=== PATIENT | female | born 1965 | race Caucasian/White ===

== ENCOUNTER 2018-04-22 22:38 | Observation (INO) | payer SELFPAY ==
[2018-04-22 23:34] LABS: #Eosinphils 0.2 thou/uL (0.0-0.7); #Lymphocytes 2.9 thou/uL (1.20-3.40); #Monocytes 0.5 thou/uL (0.11-0.59); #Neutrophils 5.6 thou/uL (1.40-6.50); %Basophils 0.4 % (0.0-1.0); %Eosinophils 2.2 % (0.0-10.0); %Lymphocytes 31.1 % (21.0-51.0); %Monocytes 5.7 % (0.0-10.0); %Neutrophils 60.7 % (42.0-75.0); Hemoglobin 12.8 g/dL (12.0-16.0); Mean Corpuscular HGB CONC 34.8 g/dL (32.0-36.0); Mean Corpuscular Hemoglobin 28.3 pg (27.0-31.0); Mean Corpuscular Volume 81.3 fl (81.0-99.0); Platelet Count 187 thou/uL (130-400); RBC Distribution Width 13.5 % (11.5-14.5); Red Blood Cell (RBC) Count 4.51 mill/uL (4.20-5.40); White Blood Cell (WBC) Count 9.3 thou/uL (4.8-10.8)
--- NOTE | 2018-04-22 23:39 | CT ---
CT BRAIN WITHOUT CONTRAST: History: Stroke alert. Comparison: None. FINDINGS: No hemorrhage or infarct. No midline shift or mass effect. Ventricular size and extraaxial CSF spaces are normal. Paranasal sinuses and mastoids are clear. IMPRESSION: No acute intracranial abnormality. Code CR. Emergency Department called at 11:33 a.m. POS: ELYSIA
[2018-04-22 23:41] LABS: PTT 27.2 SEC (22.9-36.1); Prothrombin Time 13.6 SEC (12.0-14.7)
[2018-04-22 23:46] LABS: ALT (SGPT) 50 U/L (8-55); AST (SGOT) 50 U/L (5-34); Albumin 4.2 g/dL (3.5-5.0); Alkaline Phosphatase 84 U/L (40-150); Anion Gap 15 mmol/L (10-20); BUN (Urea Nitrogen) 12 mg/dL (9.8-20.1); Bilirubin, Total 0.3 mg/dL (0.2-1.2); Calc. Creatinine Clearance 0 mL/min (70-130); Calcium 9.4 mg/dL (7.8-10.44); Carbon Dioxide 24 mmol/L (22-29); Chloride 100 mmol/L (98-107); Estimated GFR-MDRD 73; Globulin 3.2 g/dL (2.4-3.5); Glucose 163 mg/dL (70-105); Potassium 3.8 mmol/L (3.5-5.1); Protein, Total 7.4 g/dL (6.0-8.3); Sodium 135 mmol/L (136-145)
[2018-04-22 23:51] LABS: CKMB 0.7 ng/mL (0-6.6); Troponin I Less than 0.010 ng/mL (< 0.028)
[2018-04-23 01:27] LABS: Bilirubin Negative (Negative); Blood, Urine Negative (Negative); Clarity CLEAR (Clear); Glucose, Urine (Dipstick) Negative (Negative); Leukocyte Negative (Negative); Nitrite Negative (Negative); Protein, Urine (Dipstick) Negative (Neg-Trace); Specific Gravity, Urine 1.014 (1.002-1.036); Urobilinogen 0.2 mg/dL (0.2-1.0)
[2018-04-23] MEDS ORDERED: Acetaminophen 325 MG TAB PO PRN (02:35)
[2018-04-23] MEDS ORDERED: Ondansetron HCl/PF 4 MG/2 ML Vial IVP PRN (02:35)
[2018-04-23] MEDS ORDERED: Ondansetron ODT 4 MG TAB PO PRN (02:35)
[2018-04-23 02:51] LABS: #Eosinphils 0.2 thou/uL (0.0-0.7); #Lymphocytes 2.5 thou/uL (1.20-3.40); #Monocytes 0.4 thou/uL (0.11-0.59); #Neutrophils 4.8 thou/uL (1.40-6.50); %Basophils 0.6 % (0.0-1.0); %Eosinophils 2.4 % (0.0-10.0); %Lymphocytes 31.2 % (21.0-51.0); %Monocytes 5.1 % (0.0-10.0); %Neutrophils 60.8 % (42.0-75.0); Hemoglobin 11.9 g/dL (12.0-16.0); Mean Corpuscular HGB CONC 35.3 g/dL (32.0-36.0); Mean Corpuscular Hemoglobin 28.8 pg (27.0-31.0); Mean Corpuscular Volume 81.7 fl (81.0-99.0); Platelet Count 163 thou/uL (130-400); RBC Distribution Width 13.5 % (11.5-14.5); Red Blood Cell (RBC) Count 4.12 mill/uL (4.20-5.40); White Blood Cell (WBC) Count 7.9 thou/uL (4.8-10.8)
--- NOTE | 2018-04-23 03:00 | HP ---
DATE OF ADMISSION: 04/23/2018 PRIMARY CARE PHYSICIAN: Obdulia chaney. TIME OF SERVICE: 0150. CHIEF COMPLAINT: Headache and left-sided weakness. HISTORY OF PRESENT ILLNESS: Ms. Munoz is a 52-year-old female with a history of recurrent headaches/ migraines, hypertension, TIAs, she has been told since October, hypothyroidism and diabetes. The patient was with normal state of health, has been complaining of increasing visual changes that s he describes as blurriness in both eyes in all loaiza and feel like she is going blind. She started having this "TIA" about 5 days ago as when her symptoms started with intractable headache that she describes as starting on the left frontoparietal region extending backwards and worsening o f vision. Today around 6:00 a.m., she had acute onset of left-sided weakness giving her some function, but decr eased strength, and subsequently came to the emergency department for evaluation some 12 hours later. She has had some nausea and vomiting, which is a kind of her baseline. She has got decreased stren gth to her left upper and lower extremities. She presented to the emergency department for evaluation. CT scan of the brain was negative. Labs w ere fairly normal. We simply called for admit. PAST MEDICAL HISTORY: 1. Hypertension. 2. TIAs. 3. Migraine headaches. 4. Hypothyroidism. 5. Diabetes mellitus type 2, non-insulin dependent. PAST SURGICAL HISTORY: Includes: 1. Shoulder repair x2. 2. Ankle surgery. 3. Cholecystectomy. 4. Hysterectomy. 5. Bilateral tubal ligation. HOME MEDICATIONS: 1. Metformin 1000 mg p.o. b.i.d. 2. Cyclobenzaprine 10 mg p.o. t.i.d. p.r.n. headaches. 3. Butalbital/acetaminophen/caffeine q.6 hours p.r.n. migraine. 4. Zofran ODT 4 mg q.8 hours. 5. Estradiol 0.5 mg p.o. daily. 6. Trazodone 150 mg p.o. at bedtime. 7. Valsartan 160 mg daily. 8. Levothyroxine 50 mcg daily. 9. Metoprolol tartrate 50 mg p.o. b.i.d. ALLERGIES: 1. HYDROCHLOROTHIAZIDE causes her to "turn pale." 2. PENICILLIN caused her throat to swell up. 3. PERCOCET caused her to be nauseated and goofy. FAMILY HISTORY: Negative for clotting or bleeding disorder. No immune dysfunction. SOCIAL HISTORY: Negative for habits x3. She is , recently moved down here from [place] some time in February. REVIEW OF SYSTEMS: All systems reviewed and negative except as stated as per HPI. PHYSICAL EXAMINATION: VITAL SIGNS: Temperature on arrival 98.8, pulse 79, blood pressure 172/99, respiratory rate 20, satt ing 95% on room air. GENERAL: She is awake. She is alert. She is oriented x3. She is an obese, white female, appears t o be in no acute distress. She was kind of aloof. HEENT: Normocephalic, atraumatic. Pupils are equal, round, and reactive bilaterally. Mucous membra juan moist. No visible lesions. No thrush. Teeth are in very bad repair. She has got multiple dent al caries down to the gumline. The only 2 teeth on her lower jaw are anteriorly and they move while she talks due to caries. NECK: Supple. There is no lymphadenopathy, no JVD, no thyromegaly. I do not hear any bruits. LUNGS: Clear to auscultation bilaterally without wheezes, rales or rhonchi. CARDIOVASCULAR: Normal S1, S2. No S3 or S4. She has normal rate and regular rhythm. ABDOMEN: Obese. It is nontender, nondistended. She has good bowel sounds in all 4 quadrants. EXTREMITIES: No cyanosis or clubbing. Trace pedal edema. SKIN: Warm, moist and well perfused. She has no rashes or lesions. MUSCULOSKELETAL: Normal to inspection. All of the large joints appeared normal. There is no eviden ce of inflammation or palpable joint effusions. NEUROLOGIC: Cranial nerves II-XII are grossly intact without any focal neurologic deficits. She lozada s think feign blurry vision. She had no nystagmus. Pupils equal, round, and reactive to light. She has 5/5 strength in her right upper and lower extremity. She has 4/5 strength in the left upper ext remity and 4/5 strength in the lower extremity, though the lower extremity seems more breakthrough. Her left foot is not ticklish and her right is extremely ticklish. Otherwise, she said the sensation seems pretty normal. LABORATORY DATA: Sodium 135, potassium 3.8, chloride 102, bicarb 24, BUN 12, creatinine is 0.82, glu cose 116, and calcium was 7.4. Liver function completely within normal limits. CBC showed a white count of 9.3, hemoglobin of 12.8, hematocrit of 36.6, platelet count is 187,000. INR is 1.0. CK-MB normal at 0.7. Troponin I undetectable, 0.010. RADIOGRAPHIC STUDIES: She had a noncontrast CT scan of the brain was unremarkable. ASSESSMENT AND PLAN: 1. Left-sided headache, left-sided upper and lower extremity weakness, increasing episodes of blurry vision. Certainly, it could be a transient ischemic attack, though I was unimpressed by the exam. We will get an MRI and MRA of her brain, we will ask Neurology to visit. We will activate the stroke team including PT, OT, and ST as well as a coordinator. We will start her on Lipitor and full dose aspirin. We will check fasting lipid profile. 2. Diabetes mellitus type 2, she will be eating a diabetic diet. We will continue her metformin. 3. Headache with a history of migraines. The patient takes butalbital/acetaminophen/caffeine plus Z ofran p.r.n. nausea plus cyclobenzaprine as needed. 4. Hypertension, on valsartan, metoprolol tartrate. We will continue. 5. Hypothyroidism, on levothyroxine, which we will continue.
[2018-04-23 03:11] LABS: Anion Gap 13 mmol/L (10-20); BUN (Urea Nitrogen) 15 mg/dL (9.8-20.1); Calc. Creatinine Clearance 0 mL/min (70-130); Calcium 9.1 mg/dL (7.8-10.44); Carbon Dioxide 25 mmol/L (22-29); Cardiac Risk 6.3 (Less than 4.5); Chloride 102 mmol/L (98-107); Cholesterol 200 mg/dl (< 200 Desired); Estimated GFR-MDRD 80; Glucose 204 mg/dL (70-105); HDL Cholesterol 32 mg/dL (>60 Neg Risk); LDL Cholesterol, Calculated 125 mg/dL; Potassium 3.7 mmol/L (3.5-5.1); Sodium 136 mmol/L (136-145); Triglycerides 214 mg/dL (Less than 150)
[2018-04-23 03:36] VITALS: BMI 39.4
[2018-04-23] MEDS: HYDROcodone/Acetaminophen 5/325 mg Tablet PO PRN (03:52)
[2018-04-23] MEDS ORDERED: Lorazepam 2 MG/ML VIAL SLOW IVP SCH (08:15)
[2018-04-23] MEDS: Enoxaparin Sodium 40 MG/0.4 ML SYRINGE SC SCH (08:25)
[2018-04-23] MEDS: Famotidine 20 MG TAB PO SCH ×2 (08:26→20:49)
[2018-04-23] MEDS: Aspirin 325 MG TAB PO SCH (08:26)
[2018-04-23] MEDS ORDERED: Dextrose 50% Abboject 50 ML SYRINGE SLOW IVP PRN (11:26)
[2018-04-23] MEDS ORDERED: HumaLOG 300 UNITS/3 ML VIAL SC PRN ×2 (11:26)
[2018-04-23] MEDS ORDERED: Dextrose 5% in Water 1,000 ML IV PRN (11:26)
--- NOTE | 2018-04-23 11:29 | PDOC.EVN ---
Event Note - Event Note Event Note: Patient seen and examined following admission for CVA. Only complaint is headaches. MRI brain and TTE ordered. Will continue to follow.
--- NOTE | 2018-04-23 12:22 | MRI ---
BRAIN MRI WITHOUT CONTRAST: DATE: 04/23/18. COMPARISON: None. HISTORY: Vision changes, TIA, migraine headaches. TECHNIQUE: Multiplanar multisequence MRI imaging of the brain is obtained without contrast. FINDINGS: This study is markedly limited on the basis of patient head motion artifact. The diffusion weighted imaging demonstrates no evidence for acute infarction. No intracranial hemorrhage is evident. No mi dline shift or mass effect. No ventricular enlargement. Regional bone marrow signal intensity appears grossly unremarkable. IMPRESSION: Motion-limited exam demonstrating no evidence for acute infarction. POS: ELYSIA
--- NOTE | 2018-04-23 12:31 | MRI ---
MR ANGIOGRAM OF THE HEAD: DATE: 04/23/18. COMPARISON: None. HISTORY: Transient ischemic attack versus stroke, evaluate patency of arterial structures. TECHNIQUE: Multiplanar MR angiography of the brain obtained with 3D [id number] imaging. FINDINGS: This study is markedly limited by patient motion artifact. The distal right vertebral artery is nonv isualized which may be on the basis of occlusion or hypoplasia. Distal left vertebral artery appears patent but is limited in assessment secondary to motion. The proximal basilar artery is also limite d in assessment secondary to motion. Patent left-sided posterior communicating artery noted. P1 seg ment on the left is hypoplastic or aplastic. Imaged ICA is patent. M1 and A1 segments re patent. Detailed assessment of the distal SUSANA and MCA b ranches is limited bilaterally. IMPRESSION: Limited MR angiogram secondary to motion. No central arterial occlusion. Question hypoplasia versus occlusion of right vertebral artery. Ultrasound or CT angiogram to better assess these findings. POS: SHARYN
[2018-04-23] MEDS: Valproate Sodium 500 MG in Sodium Chloride 0.9% 100 ML IVPB SCH (20:48)
[2018-04-23] MEDS ORDERED: Amitriptyline HCl 25 MG TAB PO SCH (21:00)
[2018-04-23] MEDS ORDERED: Atorvastatin Calcium 20 MG TAB PO SCH (21:00)
--- NOTE | 2018-04-24 02:34 | CON ---
DATE OF CONSULTATION: 04/24/2018 REFERRING PHYSICIAN: Dr. Rosas Bernal. REASON FOR CONSULTATION: Slurred speech, vision changes, headaches, and left-sided numbness and weak ness. HISTORY OF PRESENT ILLNESS: Ms. Munoz is a pleasant 52-year-old female who has been concer minerva for evaluation of headaches, vision changes, slurred speech, and left-sided numbness and weakness . Patient reports that she has been having increasing frequency of headaches over the past one year. She has been having headaches on a daily basis. These headaches are located in the left temporopar ietal region. They are throbbing and sharp in quality and radiating to the back of the head. She st ates her headaches as 9-10/10. They are occurring on a daily basis and last all day long. She had s een her primary care physician, Dr. Burgess who has been prescribing her Fioricet and Flexeril witho ut any help. She reports that over the past few days, she started noticing difficulty with her speec h and slurring of her speech, she also started noticing numbness and weakness on the left upper and l eft lower extremity. As her symptoms were not getting any better, she decided to present to the hosp [facility] for further evaluation. PAST MEDICAL HISTORY: Significant for hypertension, hypothyroidism, diabetes, migraine headaches, an d TIA. PAST SURGICAL HISTORY: Significant for shoulder surgery repair x2, ankle surgery, cholecystectomy, h ysterectomy, bilateral tubal ligation. CURRENT MEDICATIONS: Please review MAR. ALLERGIES: Include HYDROCHLOROTHIAZIDE, PENICILLIN, and PERCOCET. FAMILY HISTORY: Noncontributory. SOCIAL HISTORY: She denies smoking, alcohol use, or illicit drug use. She is . REVIEW OF SYSTEMS: As mentioned in the HPI, otherwise negative. PHYSICAL EXAMINATION: VITAL SIGNS: Blood pressure 129/75, pulse of 74, temperature of 97.6, respirations of 16, O2 sats of 94% on room air. GENERAL: Well-developed, well-nourished female in no apparent distress. RESPIRATORY: Clear to auscultation bilaterally. CARDIOVASCULAR: Regular rate and rhythm. NEUROLOGIC: Mental status: Patient is awake, alert, oriented x3. Speech and language: Stuttering speech noted. Cranial nerves: Pupils are 3 mm and reactive. Visual loaiza are intact. Extraocular muscles are intact. No nystagmus. Face is symmetric. Tongue and uvula are midline. Motor exam sh owed normal tone and bulk with 5/5 strength in both lower and upper extremities but there is some giv eaway weakness on the right upper extremity and right lower extremity. Sensory: Sensation is intact and symmetric. Deep tendon reflexes are 2+ reflexes in both upper and lower extremities. Babinski: Plantar responses flexion bilaterally. Coordination intact to [id number], finger tapping b ilaterally. LABORATORY DATA: Reviewed, which included CBC, coag panel, CMP, and urinalysis, which is significant for hemoglobin 11.9, hematocrit 33.6, glucose of 253. Triglycerides of 214, total cholesterol 200, LDL of 125, otherwise unremarkable. IMAGING STUDIES: An MRI brain without contrast was reviewed, which showed no acute intracranial abno rmality. IMPRESSION: 1. Migraine, intractable headaches. 2. Conversion disorder. 3. Depression. Ms. Munoz is a 52-year-old female presented with several day history of intractable headach es along with slurred speech, left-sided weakness, and numbness. On my exam, her neurological exam i s afocal. She did have some giveaway weakness, which would suggest conversion disorder. At this gasper e, I would recommend giving her Depakote IV 500 mg q.12 hours x2 doses. I will also recommend starti ng her on amitriptyline 25 mg at bedtime for depression, anxiety as well as migraine headaches. Ther e is no further neurological workup needed from my standpoint. Thank you for your consultation.
[2018-04-24 04:55] LABS: Hemoglobin A1c 9.8 % (4.0-6.0)
[2018-04-24 05:00] LABS: Hemoglobin 11.7 g/dL (12.0-16.0); Mean Corpuscular HGB CONC 34.7 g/dL (32.0-36.0); Mean Corpuscular Hemoglobin 28.5 pg (27.0-31.0); Mean Corpuscular Volume 81.9 fl (81.0-99.0); Mean Platelet Volume 7.7 fL (7.4-10.4); Platelet Count 160 thou/uL (130-400); RBC Distribution Width 13.6 % (11.5-14.5); Red Blood Cell (RBC) Count 4.11 mill/uL (4.20-5.40); White Blood Cell (WBC) Count 6.3 thou/uL (4.8-10.8)
[2018-04-24 05:19] LABS: Anion Gap 14 mmol/L (10-20); BUN (Urea Nitrogen) 11 mg/dL (9.8-20.1); Calc. Creatinine Clearance 182 mL/min (70-130); Calcium 8.9 mg/dL (7.8-10.44); Carbon Dioxide 25 mmol/L (22-29); Chloride 104 mmol/L (98-107); Estimated GFR-MDRD Greater than 90; Glucose 132 mg/dL (70-105); Potassium 3.8 mmol/L (3.5-5.1); Sodium 139 mmol/L (136-145)
[2018-04-24] MEDS: Valproate Sodium 500 MG in Sodium Chloride 0.9% 100 ML IVPB SCH (08:58)
[2018-04-24] MEDS: Aspirin 325 MG TAB PO SCH (08:58)
[2018-04-24] MEDS: Enoxaparin Sodium 40 MG/0.4 ML SYRINGE SC SCH (08:58)
[2018-04-24] MEDS: Famotidine 20 MG TAB PO SCH (08:58)
--- NOTE | 2018-04-24 11:15 | PDOC.PN ---
- Subjective Encounter Start Date: 04/24/18 Encounter Start Time: 11:19 Patient seen and examined after admission for extremity weakness with concerns for possible TIA/CVA. Seen and reviewed by neurology- patient might have some form of conversion disorder. No acute events overnight. - Objective Resuscitation Status: Resuscitation Status FULL:Full Resuscitation Vital Signs & Weight: Vital Signs (12 hours) Temp Pulse Resp BP Pulse Ox 04/24/18 08:00 97.9 F 67 14 124/69 93 L 04/24/18 04:00 98.4 F 67 18 115/69 95 04/24/18 00:00 97.7 F 77 18 123/79 96 Weight Weight 245 lb 6.4 oz I&O: 04/23/18 04/24/18 04/25/18 06:59 06:59 06:59 Intake Total 750 1642 Balance 750 1642 Result Diagrams: 04/24/18 04:19 04/24/18 04:19 Additional Labs: Accuchecks 04/24/18 04/24/18 04/23/18 10:33 05:25 20:13 POC Glucose 160 H 132 H 159 H 04/23/18 16:44 POC Glucose 139 H Phys Exam - Physical Examination Constitutional: NAD HEENT: moist MMs, TM's clear, oral pharynx no lesions Neck: supple, full ROM Respiratory: no wheezing, no rales, no rhonchi, clear to auscultation bilateral Cardiovascular: RRR, no significant murmur, no rub Gastrointestinal: soft, non-tender, no distention, positive bowel sounds Musculoskeletal: no edema, pulses present Neurological: non-focal, moves all 4 limbs Psychiatric: normal affect, A&O x 3 Dx/Plan (1) Weakness Code(s): R53.1 - WEAKNESS Status: Acute Comment: Initially thought to be TIA /CVA but after neuro review, might be some conversion disorder component. (2) Migraine headache Code(s): G43.909 - MIGRAINE, UNSP, NOT INTRACTABLE, WITHOUT STATUS MIGRAINOSUS Status: Chronic Qualifiers: Migraine type: chronic without aura Status migrainosus presence: without status migrainosus Intractability: not intractable Qualified Code(s): G43.709 - Chronic migraine without aura, not intractable, without status migrainosus (3) HTN (hypertension) Code(s): I10 - ESSENTIAL (PRIMARY) HYPERTENSION Status: Chronic Qualifiers: Hypertension type: essential hypertension Qualified Code(s): I10 - Essential (primary) hypertension (4) Hypothyroid Code(s): E03.9 - HYPOTHYROIDISM, UNSPECIFIED Status: Chronic Qualifiers: Hypothyroidism type: unspecified Qualified Code(s): E03.9 - Hypothyroidism , unspecified (5) DM2 (diabetes mellitus, type 2) Status: Chronic Qualifiers: Diabetes mellitus casual shoe inspector insulin use: without casual shoe inspector use Diabetes mellitus complication status: with neurologic complications Diabetes mellitus complication detail: with polyneuropathy Qualified Code(s): E11.42 - Type 2 diabetes mellitus with diabetic polyneuropathy Comment: A1c 9.8 - Plan cont current plan of care, out of bed/ambulate, DVT proph w/lovenox Imagine studies have been negative. TTE w EF60-65%. Neurology reviewed and think she might have a conversion disorder. She will get 2 doses of Depakote and then be started on Amitriptylline. Likely discharge thereafter. Review of Systems - Medications/Allergies Allergies/Adverse Reactions: Allergies Allergy/AdvReac Type Severity Reaction Status Date / Time hydrochlorothiazide Allergy Severe Anaphylaxis Verified 04/23/18 03:17 oxycodone [From Percocet] Allergy Severe Hives Verified 04/23/18 03:17 Penicillins Allergy Severe Anaphylaxis Verified 04/23/18 03:17 Medications: Current Medications Acetaminophen (Tylenol) 650 mg PO Q4H PRN PRN Reason: Headache/Fever or Pain Hydrocodone Bitart/Acetaminophen (Chrisney 5/325) 1 tab PO Q4H PRN PRN Reason: Moderate Pain (4-6) Last Admin: 04/23/18 03:52 Dose: 1 tab Amitriptyline HCl (Elavil) 25 mg PO HS [facility] Last Admin: 04/23/18 20:49 Dose: 25 mg Aspirin (Aspirin) 325 mg PO QAM-WM [facility] Last Admin: 04/24/18 08:58 Dose: 325 mg Atorvastatin Calcium (Lipitor) 20 mg PO HS [facility] Last Admin: 04/23/18 20:49 Dose: 20 mg Dextrose/Water (Dextrose 50%) 25 gm SLOW IVP PRN PRN PRN Reason: Hypoglycemia Enoxaparin Sodium (Lovenox) 40 mg SC 0900 [facility] Last Admin: 04/24/18 08:58 Dose: 40 mg Famotidine (Pepcid) 20 mg PO BID TRELL Last Admin: 04/24/18 08:58 Dose: 20 mg Glucagon (Glucagon) 1 mg IM PRN PRN PRN Reason: Hypoglycemia Dextrose/Water (D5w) 1,000 mls @ 0 mls/hr IV .Q0M PRN; As Directed PRN Reason: Hypoglycemia Insulin Human Lispro (Humalog) 0 units SC .MILD SLIDING SCALE PRN PRN Reason: Mild Correctional Scale Last Admin: 04/23/18 11:53 Dose: 4 unit Insulin Human Lispro (Humalog) 0 units SC .BEDTIME SLIDING SC PRN PRN Reason: Bedtime Correctional Scale Ondansetron HCl (Zofran Odt) 4 mg PO Q6H PRN PRN Reason: Nausea/Vomiting Ondansetron HCl (Zofran) 4 mg IVP Q6H PRN PRN Reason: Nausea/Vomiting
[2018-04-24 12:25] VITALS: BP 140/73; TEMP 98.6
[2018-04-24] MEDS: HYDROcodone/Acetaminophen 5/325 mg Tablet PO PRN (12:52)
== END 2018-04-24 15:52 | disposition home or self-care (01) ==
LOC: ERS 22:38 → INTOOBSV 04-23 00:34 → 2SE 04-23 00:34
PROVIDERS: ADMIT Internal Medicine Infectious Disease; ATTEND Internal Medicine Infectious Disease
DX: G43.919 Migraine, unspecified, intractable, without status migrainosus (principal); F44.4 Conversion disorder with motor symptom or deficit; F32.9 Major depressive disorder, single episode, unspecified; I10 Essential (primary) hypertension; E03.9 Hypothyroidism, unspecified; E11.9 Type 2 diabetes mellitus without complications; Z86.73 Personal history of transient ischemic attack (TIA), and cerebral infarction without residual deficits; Z79.84 Long term (current) use of oral hypoglycemic drugs; Z79.82 Long term (current) use of aspirin; Z79.899 Other long term (current) drug therapy; Z88.0 Allergy status to penicillin; Z88.8 Allergy status to other drugs, medicaments and biological substances
CPT/HCPCS: 36415; 36416; 70450; 70544; 70551; 80048; 80053; 80061; 81003; 82553; 83036; 84484; 85025; 85027; 85610; 85730; 93005; 93306; 94760; 96365; 96372; 96374; 96375; 96376; G0378; G8978-GP-CL; G8979-GP-CJ; G8987-GO-CJ; G8988-GO-CI; G8999-GN-CK; G9186-GN-CJ; J1650; J2060; J2270; J7050